=== PATIENT | female | born 1950 ===

== ENCOUNTER 2018-01-31 12:00 | Inpatient (IN) | payer OTHER ==
[~2018-01-31] VITALS: Ht 152.4 cm; Wt 85.3 kg
[2018-01-31] MEDS ORDERED: LOTREL 5-40 MG1 EACH PO (14:26)
[2018-01-31] MEDS ORDERED: SYN PO (14:26)
[2018-01-31] MEDS ORDERED: FOLIC ACID1 MG PO (14:27)
[2018-01-31] MEDS ORDERED: [UNRECOGNIZED DRUG - OTHER] PO (14:27)
[2018-01-31] MEDS ORDERED: PLAQUINIL PO (14:28)
[2018-01-31] MEDS ORDERED: VIT D PO (14:29)
[2018-01-31] MEDS ORDERED: METHOTREXATE PO (14:29)
[2018-01-31] MEDS ORDERED: METFORMIN HCL500 MG PO (14:29)
[2018-02-07] MEDS ORDERED: COLACE100 MG PO (10:55)
[2018-02-07] MEDS ORDERED: PERCOCET 5-3251 EACH PO (10:56)
[2018-02-07] MEDS ORDERED: CLONAZEPAM1 MG PO (10:56)
== END 2018-02-08 10:54 | disposition home or self-care (01) | DRG 454 ==
LOC: O/R 02-07 05:00 → SURH 02-07 05:00
PROVIDERS: Orthopaedic Surgery Orthopaedic Surgery of the Spine
PROC: 0RG2071 Fusion of 2 or more Cervical Vertebral Joints with Autologous Tissue Substitute, Posterior Approach, Posterior Column, Open Approach (ICD-10-PCS; 2018-02-07)
PROC: 0RT30ZZ Resection of Cervical Vertebral Disc, Open Approach (ICD-10-PCS; 2018-02-07)
PROC: 07DS3ZZ Extraction of Vertebral Bone Marrow, Percutaneous Approach (ICD-10-PCS; 2018-02-07)
PROC: 0RG20A0 Fusion of 2 or more Cervical Vertebral Joints with Interbody Fusion Device, Anterior Approach, Anterior Column, Open Approach (ICD-10-PCS; principal; 2018-02-07 10:00)
DX: M50.01 Cervical disc disorder with myelopathy, high cervical region (principal); M47.12 Other spondylosis with myelopathy, cervical region; I10 Essential (primary) hypertension; E11.9 Type 2 diabetes mellitus without complications; E03.8 Other specified hypothyroidism

== ENCOUNTER 2019-07-02 11:01 | Day surgery (SDC) | payer OTHER ==
[~2019-07-02] VITALS: Ht 61 cm; Wt 5.0 kg
[~2019-07-02 11:01] MED LIST: CLONAZEPAM1 MG PO; COLACE100 MG PO; FOLIC ACID1 MG PO; LOTREL 5-40 MG1 EACH PO; METFORMIN HCL500 MG PO; METHOTREXATE PO; PERCOCET 5-3251 EACH PO; PLAQUINIL PO; SYN PO; VIT D PO; [UNRECOGNIZED DRUG - OTHER] PO
[2019-07-02] MEDS ORDERED: SYNTHROID112 MCG (11:29)
--- NOTE | 2019-07-02 11:29 | NUR ---
SE RECIBE PTE. FEMENINA ALERTA CONCIENTE Y ORIENTADA EN [place] [employer]/ PTE. REFIERE SUFRIO CAIDA EL VIERNES CON TRAUMA EN PIERNA RT. LLEGA CON REFERIDO DE DR. GOVEA. SE PASA A AREA DE OBSERVAACION.
[2019-07-03] MEDS ORDERED: PERCOCET 5-3251 EACH PO (12:02)
[2019-07-03] MEDS ORDERED: LEVAQUIN750 MG PO (12:02)
[2019-07-03] MEDS ORDERED: ASA325 MG PO (12:02)
== END 2019-07-02 22:00 | disposition home or self-care (01) ==
LOC: ER 11:01 → O/R 12:19 → SEC-K 12:19 → ER 12:19 → CIR.AMB 14:00 → SEC-K 16:27 → O/R 16:27 → CIR.AMB 22:00
DX: S82.841A Displaced bimalleolar fracture of right lower leg, initial encounter for closed fracture (principal); W01.0XXA Fall on same level from slipping, tripping and stumbling without subsequent striking against object, initial encounter; Z01.818 Encounter for other preprocedural examination; Y93.E9 Activity, other interior property and clothing maintenance; Y92.091 Bathroom in other non-institutional residence as the place of occurrence of the external cause; Y99.8 Other external cause status

== ENCOUNTER 2019-07-03 07:43 | Day surgery (SDC) | payer OTHER ==
[~2019-07-03] VITALS: Ht 152.4 cm; Wt 79.4 kg
[~2019-07-03 07:43] MED LIST changes: +SYNTHROID112 MCG
--- NOTE | 2019-07-03 08:01 | NUR ---
SE RECIBE PTE ALERTA Y ORIENTADA X3,REFIERE HABESE CAIDO EL VIERNES EN LA CASA SE HIZO UN TRAUMA EN EL PIE DERECHO,EN EL OLESYA.
[2019-07-03] MEDS ORDERED: PERCOCET 5-3251 EACH PO (12:02)
[2019-07-03] MEDS ORDERED: LEVAQUIN750 MG PO (12:02)
[2019-07-03] MEDS ORDERED: ASA325 MG PO (12:02)
== END 2019-07-03 14:00 | disposition home or self-care (01) ==
LOC: ER 07:43 → O/R 07:47 → ER 07:47 → SEC-K 07:47 → EDSTATUS 08:00 → CIR.AMB 09:00 → O/R 14:27 → SEC-K 14:27 → O/R 14:27
DX: S82.841A Displaced bimalleolar fracture of right lower leg, initial encounter for closed fracture (principal); S93.421A Sprain of deltoid ligament of right ankle, initial encounter
CPT/HCPCS: 27814; 27695; C1776